=== PATIENT | male | born 1980 | race Caucasian/White ===

== ENCOUNTER → 2024-04-22 14:18 | Outpatient (BNVA) | payer OTHER, SELFPAY | PROVIDERS: Family Provider Nurse Practitioner Family; PCP Nurse Practitioner Family; Visit Provider Nurse Practitioner Family | DX: Z00.00 Encounter for general adult medical examination without abnormal findings (principal); R06.02 Shortness of breath; I10 Essential (primary) hypertension | CPT/HCPCS: 71046 ==

== ENCOUNTER → 2024-05-10 11:36 | Outpatient (BNVA) | payer OTHER, SELFPAY | PROVIDERS: Family Provider Nurse Practitioner Family; PCP Nurse Practitioner Family; Visit Provider Nurse Practitioner Family | DX: I10 Essential (primary) hypertension (principal) | CPT/HCPCS: 80053; 80061; 83036; 84443; 85025 ==

== ENCOUNTER 2024-05-13 09:59 | Outpatient (CLI) | payer OTHER, SELFPAY ==
[2024-05-13 10:15] VITALS: PULSE 80; RESP 18; O2SAT 99
[2024-05-13] MEDS: albuterol 2.5 mg/3 mL Neb INHALATION (10:15)
== END 2024-05-13 10:00 | disposition home or self-care (01) ==
LOC: RT 10:03
PROVIDERS: PCP Nurse Practitioner Family; Visit Provider Nurse Practitioner Family
DX: R06.02 Shortness of breath (principal)
CPT/HCPCS: 94060; 94618; 94726; 94729; J7613